=== PATIENT | male | born 1965 | race Caucasian/White ===

== ENCOUNTER 2020-02-01 12:30 | Emergency (ER) | payer MEDICAID ==
[~2020-02-01] VITALS: Ht 180.3 cm; Wt 80.0 kg
--- NOTE | 2020-02-01 12:59 | NUR ---
THIS IS A 55 YO M BIB EMS W/ C/O SI, NAUSEAX2 DAYS AND HAX2 DAYS. PT REPORTS HE HAS BEEN OFF HIS MEDS FOR 2 WEEKS BECAUSE PHARMACY WOULDNT FILL RX. HX:BIPOLAR, SCHITZOPHRENIA, SA. USUALLY TAKES SEROQUEL, OLANZAPINE, LEVOTHYROXINE AND AMLODIPINE. PT REPORTS AUDITORY HALLUCINATIONS TELLING HIM TO "KILL THEM ALL". PT REPORTS SA 6 MONTHS AGO BY HANGING. PTS CURRENT PLAN IS TO HANG HIMSELF. PT BELONGINGS REMOVED AND PLACED IN BELONGINGS LOCKER. 3 BELONGINGS BAG AND TENT PLACED ON TOP SHELF PLUS ADDITIONAL 2 PERSONAL BAGS PLACED IN BIN IN SAFETY LOCKER. GARAGE DOORS DOWN. PT RESTING ON LOAN SUE NADN. AWAITING ORDERS.
--- NOTE | 2020-02-01 13:05 | NUR ---
PRODUCT LINE MANAGER INFORMED WE NEED PATIENT SITTER.
--- NOTE | 2020-02-01 13:08 | NUR ---
LAB IN ROOM.
[2020-02-01] MEDS ORDERED: AMLODIPINE (13:10)
[2020-02-01] MEDS ORDERED: LEVOTHYROXINE (13:10)
[2020-02-01] MEDS ORDERED: OLAN20TA14 PO (13:10)
[2020-02-01] MEDS ORDERED: QUET400T4 PO (13:10)
--- NOTE | 2020-02-01 13:11 | NUR ---
MED REC DONE.
--- NOTE | 2020-02-01 13:15 | NUR ---
PT PROVIDED W/ URINAL. AWARE WE NEED URINE SAMPLE.
[2020-02-01 13:19] LABS: BASOPHILS # (AUTO) 0.03 x10^3/uL (0-0.1); BASOPHILS % (AUTO) 0 % (0-1); EOSINOPHILS # (AUTO) 0.15 x10^3/uL (0-0.4); EOSINOPHILS % (AUTO) 2 % (1-7); LYMPHOCYTES % (AUTO) 36 % (22-44); MD NO; MEAN CORPUSCULAR HEMOGLOBIN 29.5 pg (27.5-34.5); MEAN CORPUSCULAR HGB CONC 33.5 g/dL (33.2-36.2); MEAN PLATELET VOLUME 7.5 fL (7.4-10.4); MONOCYTES # (AUTO) 0.73 x10^3/uL (0.2-0.8); MONOCYTES % (AUTO) 7 % (2-9); NEUTROPHILS % (AUTO) 55 % (42-75); PLATELET COUNT 202 x10^3/uL (130-400); RED CELL DISTRIBUTION WIDTH 13.9 % (9.4-14.8)
--- NOTE | 2020-02-01 13:30 | NUR ---
SITTER OUTSIDE ROOM.
[2020-02-01 13:32] LABS: ALBUMIN 4.6 g/dL (3.4-5.0); ANION GAP 10 mmol/L (5-15); CALCIUM 9.1 mg/dL (8.5-10.1); CHLORIDE 108 mmol/L (98-107); CREATININE 1.54 mg/dL (0.7-1.3); SALICYLATE LEVEL 3.4 mg/dL (2.8-20.0)
--- NOTE | 2020-02-01 14:06 | NUR ---
AILEEN CRUZ AT BEDSIDE. URINE COLLECTED AND SENT TO LAB.
[2020-02-01 14:27] LABS: AMPHETAMINE SCREEN, URINE Positive (Negative); BARBITURATE SCREEN, URINE Negative (Negative); BENZODIAZEPINE SCREEN, URINE Negative (Negative); CANNABINOID SCREEN, URINE Positive (Negative); COCAINE SCREEN, URINE Negative (Negative); METHADONE SCREEN, URINE Negative (Negative); OPIATE SCREEN, URINE Negative (Negative)
--- NOTE | 2020-02-01 14:30 | NUR ---
SPOKE W/ [facility] IN [place] [phone]. PT LAST FILLED SEROQUEL 400MG HS IN JULY OF 2019 AND OLANZAPINE 20MG HS IN NOVEMBER 2018. WILL UPDATE AILEEN ZARATE
--- NOTE | 2020-02-01 14:33 | NUR ---
TASK RN NOTE: EVALUATION COMPLETED. SI FOOD TRAY ORDERED. SITTER OUTSIDE OF ROOM FOR DIRECT OBSERVATION AND Q15 MIN SAFETY CHECKS.
--- NOTE | 2020-02-01 14:53 | NUR ---
THROUGHPUT: PT DENIED BY [facility] D/T INS.
[2020-02-01] MEDS ORDERED: QUETIAPINE 100MG TABLET PO ONE (15:00)
[2020-02-01] MEDS ORDERED: QUETIAPINE 100MG TABLET ONE (15:18)
--- NOTE | 2020-02-01 15:18 | NUR ---
ED SAFETY DIET TRAY DELIVERED.
--- NOTE | 2020-02-01 15:24 | NUR ---
HOSPITAL BED REQUESTED.
--- NOTE | 2020-02-01 15:28 | NUR ---
PT RESTING ON GURNEY, EATING. RESP EVEN AND UNLABORED, NADN. SITTER OUTSIDE ROOM, GARAGE DOORS DOWN.
--- NOTE | 2020-02-01 15:48 | NUR ---
PT AMBULATED TO THE SHOWER W/ A STEADY GAIT. SITTER OUTSIDE.
--- NOTE | 2020-02-01 16:22 | NUR ---
PT RETURNED TO ROOM. RESTING ON HOSPITAL BED. SITTER OUTSIDE ROOM, GARAGE DOORS DOWN. RESP EVEN AND UNLABORED, MARIA DOLORES.
--- NOTE | 2020-02-01 16:33 | NUR ---
THROUGHPUT: PACKET FAXED TO [facility], [facility], [facility] & [facility].
--- NOTE | 2020-02-01 17:11 | NUR ---
THROUGHPUT: [facility] DENIED PT D/T INS & PT REFUSED SELF-PAY OPTION.
--- NOTE | 2020-02-01 17:32 | NUR ---
PT RESTING ON GURNEY W/ SITTER OUTSIDE ROOM AND GARAGE DOORS DOWN. RESP EVEN AND UNLABORED, MARIA DOLORES.
--- NOTE | 2020-02-01 18:16 | NUR ---
DINNER TRAY DELIVERED. PT SITTING UP ON GURNEY EATING, RESP EVEN AND UNLABORED. NADN. SITTER OUTSIDE ROOM. GARAGE DOORS DOWN.
--- NOTE | 2020-02-01 18:54 | NUR ---
REPORT FROM EDWIN DAVIS.
--- NOTE | 2020-02-01 19:07 | NUR ---
PT SITTING ON BED EATING. SITTER AT DOORWAY FOR SAFETY MONITORING.
--- NOTE | 2020-02-01 20:14 | NUR ---
RESTING ON BED, CALM AND COOPERATIVE. SITTER AT DOORWAY.
[2020-02-01] MEDS ORDERED: QUETIAPINE 100MG TABLET PO SCH (21:00)
--- NOTE | 2020-02-01 23:17 | NUR ---
REQUESTED SEROQUEL 100MG TABS FROM PHARMACY. PT WATCHING TV. SITTER AT DOORWAY.
[2020-02-01] MEDS: QUETIAPINE 200 MG TABLET PO SCH (23:24)
--- NOTE | 2020-02-02 00:19 | NUR ---
Pt asleep and resting in bed. Equal chest rise and good cap refill. Pt has product safety associate outside room for continous monitoring.
--- NOTE | 2020-02-02 01:06 | NUR ---
PT UP TO BATHROOM, SITTER AT DOORWAY.
--- NOTE | 2020-02-02 02:49 | NUR ---
PROVIDED SNACKS TO PTGeorge GOLDEN AT DOORWAY.
--- NOTE | 2020-02-02 03:52 | NUR ---
SLEEPING, EQUAL CHEST RISE AND UNLABORED RESPIRATIONS. SITTER MONITORING FOR SAFETY.
--- NOTE | 2020-02-02 03:54 | NUR ---
PT SUDDENLY AWAKE AND RESTLESS.
--- NOTE | 2020-02-02 03:58 | NUR ---
MEDICATED PER MAR.
--- NOTE | 2020-02-02 05:09 | NUR ---
PT NOW SLEEPING COMFORTABLY. SITTER OUTSIDE ROOM FOR SAFETY MONITORING.
--- NOTE | 2020-02-02 06:51 | NUR ---
REPORT FROM JAMIR RN, ASSUME CARE OF PT AT THIS TIME.
--- NOTE | 2020-02-02 08:23 | NUR ---
PT SLEEPING, NAD, SITTER AT DOORWAY.
[2020-02-02] MEDS ORDERED: QUETIAPINE 100MG TABLET ONE (08:41)
[2020-02-02] MEDS: QUETIAPINE 200 MG TABLET PO SCH (08:43)
--- NOTE | 2020-02-02 08:44 | NUR ---
PT AWAKE, COOPERATIVE WITH CARE. MED GIVEN PER EMAR. MEAL TRAY PROVIDED.
--- NOTE | 2020-02-02 09:16 | NUR ---
PT GIVEN PITCHER OF WATER TO DRINK IN ATTEMPT TO GET CREATININE DOWN. PT COOPERATIVE WITH CARE, SITTER AT DOORWAY.
[2020-02-02 09:29] LABS: ANION GAP 6 mmol/L (5-15); CALCIUM 8.9 mg/dL (8.5-10.1); CHLORIDE 106 mmol/L (98-107); CREATININE 1.51 mg/dL (0.7-1.3)
[2020-02-02] MEDS ORDERED: LACTATED RINGERS 1,000 ML IVBOLUS ONE (09:30)
--- NOTE | 2020-02-02 09:45 | NUR ---
PT GIVEN 2ND LITER WATER TO DRINK. [employer]UD[employer] PROVIDED PER REQUEST. SITTER AT DOORWAY.
[2020-02-02 09:46] VITALS: BP 136/78
--- NOTE | 2020-02-02 10:47 | NUR ---
CALL TO [facility] TO DISCUSS CREATININE LEVEL. UNABLE TO GET THROUGH ALL LINES AVAILABLE. FAX WITH REQUEST TO CALL SENT TO [facility].
--- NOTE | 2020-02-02 11:07 | NUR ---
REPORT TO BLADE AT [facility]. THROUGHPUT RN ARRANGING TRANSPORT. WILL CALL BACK TO NOTIFY BLADE OF ETA WHEN KNOWN. [phone] (MIGUEL ÁNGEL SUP)
--- NOTE | 2020-02-02 11:54 | NUR ---
CALL TO BLADE TO INFORM OF ETA [facility] 1200. VM LEFT.
== END 2020-02-02 12:28 ==
LOC: ED 14:46
DX: R45.851 Suicidal ideations (principal); F33.9 Major depressive disorder, recurrent, unspecified; F20.9 Schizophrenia, unspecified; F15.10 Other stimulant abuse, uncomplicated; I10 Essential (primary) hypertension; E03.9 Hypothyroidism, unspecified
CPT/HCPCS: 36415; 80048; 80307; 82040; 85025; 99285; Q0177